=== PATIENT | male | born 1960 | race Hispanic/Latino ===

== ENCOUNTER 2024-05-06 18:03 | Inpatient (IN) | payer SELFPAY ==
[2024-05-06] MEDS ORDERED: Piperacillin/Tazobactam 4.5 GM VIAL ONE (20:33)
[2024-05-06 20:34] LABS: #Basophils 0.06 10x3/uL (0.0-0.2); %Basophils 0.7 % (0.0-1.0); %Lymphocytes 27.7 % (21.0-51.0); %Monocytes 8.8 % (0.0-10.0); Hematocrit 40.8 % (42.0-52.0); Hemoglobin 14.5 g/dL (14.0-18.0); Mean Corpuscular HGB CONC 35.5 g/dL (32.0-36.0); Mean Corpuscular Hemoglobin 33.1 pg (27.0-31.0); Mean Corpuscular Volume 93.2 fL (78.0-98.0); Mean Platelet Volume 10.1 fL (7.4-10.4); Platelet Count 263 10x3/uL (130-400); RBC Distribution Width 12.3 % (11.5-14.5); Red Blood Cell (RBC) Count 4.38 mill/uL (4.70-6.10)
[2024-05-06] MEDS ORDERED: Sodium Chloride 0.9% 100 ML ONE (20:34)
[2024-05-06] MEDS ORDERED: Sodium Chloride 0.9% 250 ML 250 ML ONE (20:34)
[2024-05-06 20:53] LABS: INR-International Normal Ratio 1.1; PTT 34.8 sec (22.9-36.1); Prothrombin Time 13.7 sec (12.0-14.7)
[2024-05-06 21:15] LABS: Bacteria/HPF None Seen HPF (None Seen); Bilirubin Negative (Negative); Blood, Urine Negative (Negative); CAUTI Indications for Culture Fever or rigors; Clarity Clear (Clear); Glucose, Urine (Dipstick) Normal (Negative); Ketone, Urine Negative (Negative); Leukocyte Negative Leu/uL (Negative); Mucous/LPF Rare LPF (<2+); Nitrite Negative (Negative); Protein, Urine (Dipstick) 10 mg/dL (Neg-Trace); RBC/HPF 0-3 HPF (0-3); Specific Gravity, Urine 1.023 (1.002-1.036); Squamous Epithelial 0-3 HPF (0-3); WBC/HPF 0-3 HPF (0-3); pH, Urine 5.5 (5.0-9.0)
[2024-05-06 21:16] LABS: Urine Culture Reflex No No
[2024-05-06 21:29] LABS: ALT (SGPT) 8 U/L (8-55); AST (SGOT) 15 U/L (5-34); Albumin 3.3 g/dL (3.4-4.8); Alkaline Phosphatase 65 U/L (40-110); Anion Gap 13 mmol/L (10-20); BUN (Urea Nitrogen) 8 mg/dL (8.4-25.7); Bilirubin, Total 0.5 mg/dL (0.2-1.2); CK (CPK) 62 U/L (30-200); Calc. Creatinine Clearance 0 mL/min (70-130); Calcium 9.3 mg/dL (7.8-10.44); Carbon Dioxide 25 mmol/L (23-31); Chloride 105 mmol/L (98-107); Estimated GFR 104; Glucose 167 mg/dL (80-115); Potassium 4.4 mmol/L (3.5-5.1); Protein, Total 7.3 g/dL (5.8-8.1); Sodium 139 mmol/L (136-145)
[2024-05-06] MEDS ORDERED: Dextrose 5% in Water 1,000 ML IV PRN (22:30)
[2024-05-06] MEDS ORDERED: Dextrose 50% Abboject 50 ML SYRINGE SLOW IVP PRN (22:30)
[2024-05-06] MEDS ORDERED: Glucagon 1 MG/ML KIT IM PRN (22:30)
[2024-05-06] MEDS ORDERED: HumaLOG 300 UNITS/3 ML VIAL SC PRN (22:30)
[2024-05-06] MEDS ORDERED: Ondansetron PF 4 MG/2 ML Vial IVP PRN (22:31)
[2024-05-06] MEDS ORDERED: Acetaminophen 325 MG TAB PO PRN (22:31)
[2024-05-06] MEDS ORDERED: Ondansetron ODT 4 MG TAB PO PRN (22:31)
[2024-05-06 23:40] VITALS: BMI 26.9
[2024-05-06] MEDS: Vancomycin (BATCH) 1.25 GM in Premix 1 BAG IVPB SCH (23:41)
[2024-05-07] MEDS: Piperacillin/Tazobactam 3.375 GM in Sodium Chloride 0.9% 100 ML IVPB SCH (00:55)
[2024-05-07] MEDS: Vancomycin 1 GM in Premix 1 BAG IVPB SCH (05:24)
[2024-05-07 06:05] LABS: Cardiac Risk 4.2 (Less than 4.5)
[2024-05-07] MEDS ORDERED: PROPOFOL 20 ML ONE (13:36)
[2024-05-07] MEDS ORDERED: fentaNYL PF 100 MCG/2 ML SYRINGE ONE (13:36)
[2024-05-07] MEDS ORDERED: Midazolam HCl 2 mg/2 ml Vial ONE (13:36)
[2024-05-07] MEDS ORDERED: Ondansetron PF 4 MG/2 ML Vial ONE (13:37)
[2024-05-07] MEDS ORDERED: Lidocaine 1% PF 5 ML VIAL ONE (13:37)
[2024-05-07] MEDS ORDERED: Lidocaine 2% 6 ML (Jelly) SYR ONE (13:38)
[2024-05-07] MEDS ORDERED: Bupivacaine PF 0.5% 30 ML VIAL ONE (13:47)
[2024-05-07] MEDS: HumaLOG 300 UNITS/3 ML VIAL SC PRN (17:34)
[2024-05-08 06:10] LABS: #Basophils 0.05 10x3/uL (0.0-0.2); %Basophils 0.6 % (0.0-1.0); %Eosinophils 1.4 % (0.0-10.0); %Lymphocytes 26.7 % (21.0-51.0); %Monocytes 8.3 % (0.0-10.0); %Neutrophils 62.4 % (42.0-75.0); Mean Corpuscular Hemoglobin 32.2 pg (27.0-31.0); Mean Platelet Volume 10.1 fL (7.4-10.4); Platelet Count 202 10x3/uL (130-400); RBC Distribution Width 12.1 % (11.5-14.5); Red Blood Cell (RBC) Count 4.35 mill/uL (4.70-6.10)
[2024-05-08 06:28] LABS: Anion Gap 12 mmol/L (10-20); BUN (Urea Nitrogen) 7 mg/dL (8.4-25.7); Calc. Creatinine Clearance 91 mL/min (70-130); Calcium 8.8 mg/dL (7.8-10.44); Carbon Dioxide 27 mmol/L (23-31); Chloride 104 mmol/L (98-107); Estimated GFR 101; Glucose 150 mg/dL (80-115); Potassium 4.3 mmol/L (3.5-5.1); Sodium 139 mmol/L (136-145)
[2024-05-08 06:37] LABS: Vancomycin, Random 23.3 ug/mL (See Comment)
[2024-05-08] MEDS ORDERED: Vancomycin 1 GM in Premix 1 BAG IVPB SCH ×2 (11:15→20:00)
[2024-05-08 11:44] LABS: Vancomycin, Random 17.9 ug/mL (See Comment)
[2024-05-09 06:01] LABS: #Basophils 0.07 10x3/uL (0.0-0.2); %Eosinophils 1.5 % (0.0-10.0); %Lymphocytes 32.4 % (21.0-51.0); %Neutrophils 55.8 % (42.0-75.0); Hematocrit 42.1 % (42.0-52.0); Hemoglobin 14.5 g/dL (14.0-18.0); Mean Corpuscular HGB CONC 34.4 g/dL (32.0-36.0); Mean Corpuscular Hemoglobin 31.7 pg (27.0-31.0); Mean Corpuscular Volume 91.9 fL (78.0-98.0); Mean Platelet Volume 10.4 fL (7.4-10.4); Platelet Count 221 10x3/uL (130-400); RBC Distribution Width 12.1 % (11.5-14.5); Red Blood Cell (RBC) Count 4.58 mill/uL (4.70-6.10)
[2024-05-09 07:06] LABS: Anion Gap 11 mmol/L (10-20); BUN (Urea Nitrogen) 7 mg/dL (8.4-25.7); Calc. Creatinine Clearance 91 mL/min (70-130); Calcium 9.2 mg/dL (7.8-10.44); Carbon Dioxide 29 mmol/L (23-31); Chloride 103 mmol/L (98-107); Estimated GFR 101; Glucose 151 mg/dL (80-115); Potassium 4.5 mmol/L (3.5-5.1); Sodium 138 mmol/L (136-145)
[2024-05-09] MEDS: metFORMIN 500 MG TAB PO SCH (09:14)
[2024-05-09 13:13] VITALS: BP 136/77; TEMP 97.7
== END 2024-05-09 13:30 | disposition home or self-care (01) | DRG 617 ==
LOC: ERS 18:03 → T4-A 22:24
PROVIDERS: ADMIT Student in an Organized Health Care Education/Training Program; ATTEND Internal Medicine
PROC: 0Y6M0ZD Detachment at Right Foot, Partial 4th Ray, Open Approach (ICD-10-PCS; principal; 2024-05-07)
DX: E11.69 Type 2 diabetes mellitus with other specified complication (principal); E11.52 Type 2 diabetes mellitus with diabetic peripheral angiopathy with gangrene; I96 Gangrene, not elsewhere classified; M86.8X7 Other osteomyelitis, ankle and foot; L03.031 Cellulitis of right toe; Z79.899 Other long term (current) drug therapy; Z79.84 Long term (current) use of oral hypoglycemic drugs
CPT/HCPCS: 36415; 36416; 71045; 80048; 80053; 80061; 80202; 81001; 82550; 83605; 85025; 85610; 85730; 86141; 86850; 86900; 86901; 87040; 87086; 88305; 88311; 93005; 96365; 96366; 96367; J0665; J1815; J2250; J2405; J2543; J2704; J3370; J3370-JW; J3490; J7050